=== PATIENT | male | born 1980 | race African-American/Black ===

== ENCOUNTER 2020-11-15 16:32 | Emergency (ER) | payer MEDICAID ==
[~2020-11-15] VITALS: Ht 170.2 cm; Wt 90.0 kg
[2020-11-15] MEDS ORDERED: ASPIRIN 81 MG TABLET CHEW PO ONE (19:30)
--- NOTE | 2020-11-15 20:01 | NUR ---
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
[2020-11-15 20:52] LABS: BASOPHILS % (AUTO) 1 % (0-1); EOSINOPHILS % (AUTO) 0 % (1-7); LYMPHOCYTES % (AUTO) 33 % (22-44); MEAN CORPUSCULAR HEMOGLOBIN 28.3 pg (27.5-34.5); MEAN CORPUSCULAR HGB CONC 33.5 g/dL (33.2-36.2); MEAN PLATELET VOLUME 8.5 fL (7.4-10.4); MONOCYTES % (AUTO) 10 % (2-9); NEUTROPHILS % (AUTO) 56 % (42-75); PLATELET COUNT 288 x10^3/uL (130-400); RED BLOOD COUNT 5.74 x10^6/uL (4.38-5.82); RED CELL DISTRIBUTION WIDTH 14.9 % (9.4-14.8)
[2020-11-15 20:59] LABS: ALANINE AMINOTRANSFERASE 43 U/L (12-78); ALBUMIN 4.5 g/dL (3.4-5.0); ANION GAP 8 mmol/L (5-15); CALCIUM 9.4 mg/dL (8.5-10.1); CHLORIDE 106 mmol/L (98-107)
[2020-11-15 21:03] LABS: ALKALINE PHOSPHATASE 48 U/L (45-117); BILIRUBIN,TOTAL 0.7 mg/dL (0.2-1.0); TOTAL PROTEIN 8.9 g/dL (6.4-8.2); TROPONIN I < 0.015 ng/mL (0.000-0.045)
[2020-11-15] MEDS ORDERED: ASPIRIN 81 MG TABLET CHEW ONE (21:04)
[2020-11-15 21:12] VITALS: BP 132/96
== END 2020-11-15 21:51 | disposition home or self-care (01) ==
LOC: ED 20:59
DX: R07.89 Other chest pain (principal); R00.0 Tachycardia, unspecified
CPT/HCPCS: 36415; 71045; 80053; 84484; 85025; 93005; 99285

== ENCOUNTER 2020-11-16 11:56 | Emergency (ER) | payer MEDICAID ==
[~2020-11-16] VITALS: Ht 170.2 cm; Wt 90.1 kg
--- NOTE | 2020-11-16 12:32 | NUR ---
THIS IS A 40 YEAR OLD WHO WAS HERE YESTERDAY AND RENOWN THIS MORNING FOR THE SAME COMPLAINT OF CP AND FOOT PAIN. WHEN ASKED PT WHY HE CAME BACK, HE SAID "MY FEET REALLY HURT". 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 FEET WITH BLISTERS NOTED, NO OPEN AREAS.
[2020-11-16 13:52] VITALS: BP 150/95
== END 2020-11-16 13:56 | disposition home or self-care (01) ==
LOC: ED 12:24
DX: B35.3 Tinea pedis (principal); R07.9 Chest pain, unspecified; M79.671 Pain in right foot; M79.672 Pain in left foot; R00.0 Tachycardia, unspecified
CPT/HCPCS: 93005; 99283

== ENCOUNTER 2020-11-17 07:10 | Emergency (ER) | payer MEDICAID ==
[~2020-11-17] VITALS: Ht 170.2 cm; Wt 89.5 kg
--- NOTE | 2020-11-17 07:14 | NUR ---
CLINICAL FIELD SPECIALIST: CALLED NO ANSWER
[2020-11-17] MEDS ORDERED: OLANZAPINE 5 MG TABLET PO ONE (07:41)
--- NOTE | 2020-11-17 07:42 | NUR ---
pt presents to ed with c/o depression/anxiety, SI with no plan, and no sleep x 1 week. pt calm, cooperative, a&ox4, resps even and unlabored, vss, nadn. awaiting labwork at this time.
[2020-11-17 08:15] LABS: BASOPHILS % (AUTO) 1 % (0-1); EOSINOPHILS % (AUTO) 1 % (1-7); LYMPHOCYTES % (AUTO) 32 % (22-44); MEAN CORPUSCULAR HEMOGLOBIN 28.4 pg (27.5-34.5); MEAN CORPUSCULAR HGB CONC 33.5 g/dL (33.2-36.2); MEAN PLATELET VOLUME 8.3 fL (7.4-10.4); MONOCYTES % (AUTO) 10 % (2-9); NEUTROPHILS % (AUTO) 56 % (42-75); PLATELET COUNT 239 x10^3/uL (130-400); RED BLOOD COUNT 4.75 x10^6/uL (4.38-5.82); RED CELL DISTRIBUTION WIDTH 15.1 % (9.4-14.8)
[2020-11-17] MEDS ORDERED: OLANZAPINE 5 MG TABLET ONE (08:23)
[2020-11-17 08:31] LABS: ALBUMIN 3.9 g/dL (3.4-5.0); ANION GAP 9 mmol/L (5-15); CALCIUM 8.6 mg/dL (8.5-10.1); CHLORIDE 107 mmol/L (98-107)
[2020-11-17 08:43] LABS: ALANINE AMINOTRANSFERASE 43 U/L (12-78); ALKALINE PHOSPHATASE 44 U/L (45-117); BILIRUBIN,TOTAL 1.3 mg/dL (0.2-1.0); CREATININE 1.08 mg/dL (0.7-1.3); TOTAL PROTEIN 7.7 g/dL (6.4-8.2)
--- NOTE | 2020-11-17 08:43 | NUR ---
pt medicated per order, tolerated well. pt a&o, resps even and unlabored, vss, nadn, awaiting lab results and psych consult.
[2020-11-17 08:47] LABS: SALICYLATE LEVEL < 1.7 mg/dL (2.8-20.0)
[2020-11-17 08:54] LABS: AMPHETAMINE SCREEN, URINE Negative (Negative); BARBITURATE SCREEN, URINE Negative (Negative); BENZODIAZEPINE SCREEN, URINE Negative (Negative); CANNABINOID SCREEN, URINE Negative (Negative); COCAINE SCREEN, URINE Negative (Negative); METHADONE SCREEN, URINE Negative (Negative); OPIATE SCREEN, URINE Negative (Negative)
--- NOTE | 2020-11-17 09:31 | NUR ---
PT MOVED TO ROOM 2 FROM 43A PER PT REQUEST. ALL BELONGINGS COLLECTED AND PLACED IN ED SECURITY LOCKER. PT A&O, RESPS EVEN AND UNLABORED, NADN. WARM BLANKET PROVIDED, CLAL LIGHT IN REACH.
--- NOTE | 2020-11-17 10:13 | NUR ---
pt sleeping in bed, resps even and unlabored, nadn. all security precautions in place, garage doors down, sitter in view.
--- NOTE | 2020-11-17 10:41 | NUR ---
psych SHARMIN Sam at bedside for eval/assessment
--- NOTE | 2020-11-17 11:18 | NUR ---
pt resting in bed, a&o, resps even and unlabored, vss, nadn. pt states he feels dizzy/groggy after medication admin, neuro intact. all security precautions in place, sitter within view.
--- NOTE | 2020-11-17 12:51 | NUR ---
PT RESTING IN BED, RESPS EVEN AND UNLABORED, NADN. ALL SECURITY PRECAUTIONS IN PLACE, GARAGE DOORS DOWN, SITTER IN VIEW.
--- NOTE | 2020-11-17 13:46 | NUR ---
ASSUMED CARE OF PATIENT. REPORT GIVEN FROM KELLY CASEY
--- NOTE | 2020-11-17 14:12 | NUR ---
DEBRA, [employer]ENSMAN HAS UPDATED PATIENT. PATIENT DENIES SI, HI. PT TO BE DISCHARGED BY [facility] TO [facility].
--- NOTE | 2020-11-17 14:55 | NUR ---
PT IS READY FOR DISCHARGE, BUT NO [facility] IS AVAILABLE. EMRE, DATABASE MARKETING ANALYST AWARE, HARDWOOD FLOORING SPECIALIST AWARE, GABRIEL, BAND CUTTER AWARE. [facility] THE[facility] BUS IS NOT RUNNING AT THIS TIME. PT WILL GO BY [facility] AT 7 PM. VS STABLE. PT RESTING IN ROOM. NO ACUTE DISTRESS NOTED. WILL CONTINUE TO MONITOR.
--- NOTE | 2020-11-17 15:45 | NUR ---
PT RESTING IN ROOM. NO ACUTE DISTRESS NOTED. CALL LIGHT IN PLACE. WILL CONTINUE TO MONITOR.
--- NOTE | 2020-11-17 16:47 | NUR ---
PT RESTING IN ROOM. NO ACUTE DISTRESS NOTED. PT WAITING ON RIDE TO [facility]
--- NOTE | 2020-11-17 17:18 | NUR ---
PT RESTING IN ROOM. NO ACUTE DISTRESS NOTED. WILL CONTINUE TO MONITOR.
[2020-11-17 17:50] VITALS: BP 112/78
--- NOTE | 2020-11-17 17:52 | NUR ---
PT RESTING IN ROOM. NO ACUTE DISTRESS. [facility]. WILL CONTINUE TO MONITOR.
== END 2020-11-17 18:41 | disposition home or self-care (01) ==
LOC: ED 07:21 → UNDOADMOB 11:40 → INTOOBSV 11:40 → EDIP 11:40 → ED 18:35
DX: F23 Brief psychotic disorder (principal); R42 Dizziness and giddiness; R00.0 Tachycardia, unspecified
CPT/HCPCS: 36415; 80053; 80299; 80307; 80320; 80329; 84443; 85025; 93005; 99285; G0480